=== PATIENT | male | born 1975 | race Caucasian/White ===

== ENCOUNTER 2019-05-27 16:21 | Inpatient (IN) | payer OTHER ==
[~2019-05-27] VITALS: Ht 185.4 cm; Wt 158.8 kg
[2019-05-27] MEDS ORDERED: GLUCOPHAGE500 MG PO (16:31)
[2019-05-27] MEDS ORDERED: ZYLOPRIM100 MG PO (16:32)
[2019-05-27] MEDS ORDERED: PROTONIX40 MG PO (16:32)
--- NOTE | 2019-05-27 17:28 | NUR ---
FSBS= 163 MG/DL
[2019-05-27 17:32] LABS: BASOPHILS 0.1 % (0-2); EOSINOPHILS 0.1 % (0-7); HEMATOCRIT 48.5 % (42.0-54.0); HEMOGLOBIN 16.7 g/dL (13.5-17.5); IMMATURE GRANULOCYTES 0.4 % (0-5); MCH 29.9 pg (26.0-34.0); MCHC 34.4 g/dL (31.0-37.0); MCV 86.9 fL (80.0-100.0); MEAN PLATELET VOLUME 10.6 fL (7.4-10.4); MONOCYTES 4.6 % (2-11); NEUTROPHILS 92.8 % (40-80); PLATELET COUNT 263 10x3/uL (130-400); RBC 5.58 10x6/uL (4.20-6.10); RDW 13.1 % (11.5-14.5); WBC 15.2 10x3/uL (4.8-10.8)
[2019-05-27 18:11] LABS: ALBUMIN 3.5 g/dL (3.4-5.0); ALKALINE PHOSPHATASE 94 U/L (46-116); ALT (SGPT) 62 U/L (10-68); BILIRUBIN - TOTAL 0.77 mg/dL (0.2-1.3); CALC OSMOLALITY 287 mosm/kg (275-300); CALCIUM 8.3 mg/dL (8.5-10.1); CARBON DIOXIDE 22.2 mmol/L (21.0-32.0); CHLORIDE - SERUM 106 mmol/L (98-107); CREATININE - SERUM 1.2 mg/dL (0.6-1.3); GLUCOSE 185 mg/dL (74-106); POTASSIUM - SERUM 4.8 mmol/L (3.5-5.1); SODIUM 141 mmol/L (136-145); UREA NITROGEN 18 mg/dL (7-18); eGFR NON AFRICAN AMERICAN 71 mL/min (90-120)
[2019-05-27 18:17] LABS: AMYLASE - SERUM 71 U/L (25-115); LIPASE 123 U/L (73-393); TROPONIN-I < 0.017 ng/mL (0.000-0.060)
[2019-05-27 18:34] VITALS: BP 136/82
--- NOTE | 2019-05-27 19:12 | NUR ---
BS REPORT TO WILLIAMS PEARSON BY SBAR FORMAT
[2019-05-27 19:30] VITALS: BP 124/70
--- NOTE | 2019-05-27 19:50 | NUR ---
URINE SENT TO LAB
[2019-05-27 20:07] LABS: APPEARANCE CLEAR (CLEAR); BILIRUBIN NEGATIVE (NEGATIVE); COLOR YELLOW (YELLOW); GLUCOSE NEGATIVE (NEGATIVE); KETONE SMALL mg/dL (NEGATIVE); NITRITE NEGATIVE (NEGATIVE); PROTEIN NEGATIVE (NEGATIVE); SPECIFIC GRAVITY 1.015 (1.005-1.020); UROBILINOGEN NORMAL (NORMAL)
[2019-05-27 21:00] VITALS: BP 150/81
--- NOTE | 2019-05-27 22:20 | NUR ---
ROCEPHIN INFUSION COMPLETE AT THIS TIME
[2019-05-27 22:26] VITALS: BP 141/89
[2019-05-27 23:00] VITALS: BP 140/89
--- NOTE | 2019-05-27 23:50 | NUR ---
LEVAQUIN INFUSION COMPLETE AT THIS TIME.
[2019-05-28 00:22] VITALS: BP 153/94; BMI 46.2
[2019-05-28 04:00] VITALS: BP 150/87
[2019-05-28 07:35] LABS: BASOPHILS 0.1 % (0-2); EOSINOPHILS 0 % (0-7); HEMATOCRIT 45.1 % (42.0-54.0); HEMOGLOBIN 15.1 g/dL (13.5-17.5); IMMATURE GRANULOCYTES 0.2 % (0-5); LYMPHOCYTES 3.7 % (15-50); MCH 29.7 pg (26.0-34.0); MCHC 33.5 g/dL (31.0-37.0); MCV 88.6 fL (80.0-100.0); MEAN PLATELET VOLUME 10.8 fL (7.4-10.4); MONOCYTES 7.5 % (2-11); NEUTROPHILS 88.5 % (40-80); PLATELET COUNT 228 10x3/uL (130-400); RBC 5.09 10x6/uL (4.20-6.10); RDW 13.5 % (11.5-14.5)
[2019-05-28 07:43] LABS: WBC 10.2 10x3/uL (4.8-10.8)
[2019-05-28 07:45] VITALS: BP 146/31
[2019-05-28 07:50] LABS: CALCIUM 7.8 mg/dL (8.5-10.1); CARBON DIOXIDE 24.1 mmol/L (21.0-32.0); CREATININE - SERUM 1.2 mg/dL (0.6-1.3); MAGNESIUM - SERUM 1.5 mg/dL (1.8-2.4); PHOSPHOROUS 3.1 mg/dL (2.5-4.9); POTASSIUM - SERUM 4.1 mmol/L (3.5-5.1)
[2019-05-28 11:37] VITALS: Ht 185.4 cm; Wt 158.8 kg
[2019-05-28 13:37] LABS: ERYTHROCYTE SEDIMENTATION RATE 2 mm/hr (0-15)
[2019-05-28 17:15] VITALS: BP 158/92
--- NOTE | 2019-05-28 19:28 | NUR ---
PATIENT RESTING IN BED AND DENIES NEEDS AT THIS TIME. GUEST AT BEDSIDE. VSS. PATIENT DENIES NEEDS AT THIS TIME. BED IN LOWEST POSITION AND CALL LIGHT WITHIN REACH. ENCOURAGED THE PATIENT TO CALL IF HE HAS NEEDS. WILL CONTINUE TO MONITOR.
[2019-05-28 19:40] VITALS: BP 121/70
--- NOTE | 2019-05-28 19:57 | NUR ---
PATIENT REQUESTED SOMETHING FOR A HEADACHE
--- NOTE | 2019-05-28 19:59 | NUR ---
BERNABE TOMPKINS IN REGARDS TO PATIENT REQUEST
--- NOTE | 2019-05-28 20:06 | NUR ---
SPOKE WITH TURNER WHO ORDERED TYLENOL 650MG Q4HP PAIN/FEVER
[2019-05-29 00:42] VITALS: BP 144/82
[2019-05-29 04:00] VITALS: BP 124/72
[2019-05-29 05:38] LABS: BASOPHILS 0.2 % (0-2); EOSINOPHILS 0.9 % (0-7); HEMATOCRIT 43.7 % (42.0-54.0); HEMOGLOBIN 14.9 g/dL (13.5-17.5); IMMATURE GRANULOCYTES 0.4 % (0-5); LYMPHOCYTES 17.2 % (15-50); MCHC 34.1 g/dL (31.0-37.0); MCV 87.9 fL (80.0-100.0); MEAN PLATELET VOLUME 10.4 fL (7.4-10.4); MONOCYTES 13.4 % (2-11); NEUTROPHILS 67.9 % (40-80); RBC 4.97 10x6/uL (4.20-6.10); RDW 13.4 % (11.5-14.5); WBC 5.5 10x3/uL (4.8-10.8)
[2019-05-29 05:39] LABS: PLATELET COUNT 176 10x3/uL (130-400)
[2019-05-29 05:49] LABS: ALBUMIN 2.8 g/dL (3.4-5.0); ALKALINE PHOSPHATASE 61 U/L (46-116); ALT (SGPT) 60 U/L (10-68); AMYLASE - SERUM 41 U/L (25-115); CALC OSMOLALITY 281 mosm/kg (275-300); CALCIUM 7.7 mg/dL (8.5-10.1); CARBON DIOXIDE 27.2 mmol/L (21.0-32.0); CHLORIDE - SERUM 107 mmol/L (98-107); CREATININE - SERUM 1.1 mg/dL (0.6-1.3); GLUCOSE 124 mg/dL (74-106); LIPASE 68 U/L (73-393); MAGNESIUM - SERUM 2.1 mg/dL (1.8-2.4); POTASSIUM - SERUM 4.2 mmol/L (3.5-5.1); SODIUM 141 mmol/L (136-145); UREA NITROGEN 13 mg/dL (7-18); eGFR NON AFRICAN AMERICAN 78 mL/min (90-120)
--- NOTE | 2019-05-29 08:19 | NUR ---
PT AWAKE, ALERT, AND ORIENTED. DENIES PAIN AT THIS TIME. RR EVEN AND UNLABORED. AT BEDSIDE. BP 172/107. WILL CALL AND NOTIFY
[2019-05-29 08:22] VITALS: BP 172/107
--- NOTE | 2019-05-29 14:44 | NUR ---
I have reviewed this patient and I concur with the Shift Assessment completed by the Licensed Practical Nurse today this shift.
[2019-05-29] MEDS ORDERED: LEVAQUIN750 MG PO (16:21)
--- NOTE | 2019-05-29 17:45 | NUR ---
PT D/C PER PERSONAL VEHICHLE VIA WHEELCHAIR. IV D/C WITH CATHETER TIP INTACT. DRESSING PLACED OVER SITE, CDI. D/C INSTRUCTIONS REVIEWED. VERBALIZED UNDERSTANDING. ALL BELONGINGS SENT WITH PT.
== END 2019-05-29 17:47 | disposition home or self-care (01) | DRG 690 ==
LOC: D.ER 16:21 → D.M3 22:09
PROVIDERS: Family Medicine; ADMIT Internal Medicine Nephrology; ATTEND Internal Medicine Nephrology
DX: N12 Tubulo-interstitial nephritis, not specified as acute or chronic (principal); N20.0 Calculus of kidney; E11.9 Type 2 diabetes mellitus without complications; E83.42 Hypomagnesemia; I27.20 Pulmonary hypertension, unspecified